=== PATIENT | male | born 1980 | race Caucasian/White ===

== ENCOUNTER 2023-05-24 15:04 | Emergency (ER) | payer SELFPAY ==
[~2023-05-24] VITALS: Ht 182.9 cm; Wt 81.8 kg
[~2023-05-24 15:04] MED LIST: ADDERALL5 MG PO; PEPCID 20MG TAB20 MG PO; PHENERGAN 25 TA25 MG PO; PHENERGAN25 MG RC
[2023-05-24 15:18] VITALS: TEMP 97.8
[2023-05-24 15:52] LABS: BASO % 0.2 % (0.0-2.0); EOS % 0.3 % (0.0-4.0); GRAN # 7.6 K/mm3 (1.4-6.5); GRAN % 84.1 % (42.2-75.2); HEMATOCRIT 46.9 % (42.0-52.0); LYMPH % 11.2 % (20.0-51.0); MEAN CELL VOLUME 88 fl (80.0-100.0); MEAN CORPUSCULAR HEMOGLOBIN 30 pg (27-31); MEAN CORPUSCULAR HGB CONC 34 g/dl (33.0-37.0); MEAN PLATELET VOLUME 9.2 fl (7.4-10.4); MONO # 0.4 K/mm3 (0.1-0.6); MONO % 3.9 % (1.7-9.3); PLATELET COUNT 304 K/mm3 (130-400); RED BLOOD COUNT 5.31 M/mm3 (4.20-5.60); REDCELL DISTRIBUTION WIDTH-CV 12.6 % (11.5-14.5)
[2023-05-24 16:04] LABS: ALBUMIN 4.5 gm/dL (3.5-5.0); BILIRUBIN,TOTAL 0.7 mg/dL (0.2-1.2); CREATININE, serum 0.91 mg/dL (0.72-1.25); POTASSIUM 4.4 mmol/L (3.5-4.5); TOTAL PROTEIN 7.5 gm/dL (6.2-8.1)
[2023-05-24 16:06] LABS: INR 1.1 (0.8-3.0); PROTHROMBIN TIME 11.7 SECONDS (9.7-12.8)
[2023-05-24 16:10] LABS: TROPONIN-I 0.017 ng/mL (0.00-0.033)
[2023-05-24 19:31] VITALS: BP 122/88; PULSE 65
== END 2023-05-24 19:31 | disposition short-term general hospital (02) ==
LOC: COL.ER 15:04
PROVIDERS: Emergency Medicine
DX: I63.532 Cerebral infarction due to unspecified occlusion or stenosis of left posterior cerebral artery (principal)
CPT/HCPCS: J2060; J7030; Q9967

== ENCOUNTER 2024-02-02 14:45 | Outpatient (RCR) | payer OTHER | END 2024-02-06 | disposition home or self-care (01) | LOC: WSST | DX: I69.30 Unspecified sequelae of cerebral infarction (principal) ==

== ENCOUNTER 2024-02-07 08:38 | Outpatient (RCR) | payer OTHER | END 2024-03-08 | disposition home or self-care (01) | LOC: WSST | DX: F80.2 Mixed receptive-expressive language disorder (principal); R48.9 Unspecified symbolic dysfunctions ==

== ENCOUNTER 2024-04-05 11:15 | Outpatient (RCR) | payer OTHER | END 2024-04-08 | disposition home or self-care (01) | LOC: WSST | DX: R48.9 Unspecified symbolic dysfunctions (principal); F80.1 Expressive language disorder; I69.398 Other sequelae of cerebral infarction ==

== ENCOUNTER 2024-05-04 08:45 | Outpatient (RCR) | payer OTHER | END 2024-05-08 | disposition home or self-care (01) | LOC: WSST | DX: I69.328 Other speech and language deficits following cerebral infarction (principal); F80.1 Expressive language disorder; I69.398 Other sequelae of cerebral infarction; R48.9 Unspecified symbolic dysfunctions ==